=== PATIENT | male | born 2000 | race Caucasian/White ===

== ENCOUNTER 2021-10-11 10:29 | Emergency (ER) | payer BC ==
[2021-10-11] MEDS ORDERED: Ondansetron PF 4 MG/2 ML Vial ONE (11:14)
[2021-10-11] MEDS ORDERED: Ondansetron ODT 4 MG TAB ONE (11:30)
[2021-10-11] MEDS ORDERED: Ibuprofen 200 MG TAB ONE (11:30)
[2021-10-11] MEDS ORDERED: Acetaminophen 500 MG TAB ONE (11:31)
== END 2021-10-11 11:41 | disposition home or self-care (01) ==
LOC: CSHERS 10:29
DX: S06.0X0A Concussion without loss of consciousness, initial encounter (principal); Y04.0XXA Assault by unarmed brawl or fight, initial encounter
CPT/HCPCS: 70450; J2405; Q0162